=== PATIENT | male | born 1995 | race Two or more races ===

== ENCOUNTER 2020-01-21 11:34 | Emergency (ER) | payer MEDICAID ==
[~2020-01-21] VITALS: Ht 165.1 cm; Wt 102.0 kg
[2020-01-21] MEDS ORDERED: LORAZEPAM 1MG TABLET PO ONE (13:00)
[2020-01-21] MEDS ORDERED: ONDANSETRON 4MG ODT PO ONE (13:00)
[2020-01-21 13:28] VITALS: BP 140/97
== END 2020-01-21 13:30 | disposition home or self-care (01) ==
LOC: ER 11:34
DX: F43.0 Acute stress reaction (principal); R11.2 Nausea with vomiting, unspecified; J45.909 Unspecified asthma, uncomplicated; T78.40XA Allergy, unspecified, initial encounter; Z88.6 Allergy status to analgesic agent
CPT/HCPCS: 99283; Q0162